=== PATIENT | male | born 1960 | race Caucasian/White ===

== ENCOUNTER 2018-11-28 08:56 | Emergency (ER) | payer OTHER ==
[2018-11-28 09:02] VITALS: BMI 28.8
[2018-11-28] MEDS ORDERED: Sodium Chloride 0.9% 1,000 ML IV STA (09:34)
[2018-11-28] MEDS ORDERED: Iohexol 240 (50 ml) PO ONE (09:34)
--- NOTE | 2018-11-28 09:36 | ED PDOC ---
HPI: Abdomen Time Seen by Provider: 11/28/18 09:09 Chief Complaint (Nursing): Abdominal Pain Chief Complaint (Provider): Abd pain History Per: Patient History/Exam Limitations: no limitations Onset/Duration Of Symptoms: Days (5 days) Additional Complaint(s): Pt. with abd pain right lower and right testicular pain. Also with low back pain on the left going down left leg. No numbness, tingles, weakness, headaches, dizziness, dysuria, nausea, vomit, diarrhea, fever, new food. No injury. No incontinence or constipation. Past Medical History Reviewed: Nursing Documentation, Vital Signs Vital Signs: Last Vital Signs Temp 98.4 F 11/28/18 08:59 Pulse 79 11/28/18 08:59 Resp 14 11/28/18 08:59 BP 102/70 11/28/18 08:59 Pulse Ox 98 11/28/18 09:04 Primary Care Provider: FAMILY PROVIDER,NO - Medical History PMH: Hiatal Hernia, HTN Other PMH: testicle removed right - Surgical History Surgical History: Cholecystectomy - Family History Family History: States: Unknown Family Hx - Home Medications Home Medications: Ambulatory Orders Medication Instructions Recorded Albuterol HFA [Ventolin HFA 90 2 puff IH [id number] PRN #1 bottle 10/15/14 mcg/actuation (8 g)] Azithromycin [Zithromax Z-Clay] 250 mg PO DAILY #6 tab 10/15/14 Bismuth Subsalicylate [kaopECTATE] 262 mg PO Q4H PRN #240 ml 12/05/14 K Phos/Na Phos, Dibasic/Na P 250 mg PO DAILY #7 tab 07/27/15 [K-Phos Neutral] Ibuprofen [Motrin] 600 mg PO TID 7 Days tab 11/28/18 - Allergies Allergies/Adverse Reactions: Allergies Allergy/AdvReac Type Severity Reaction Status Date / Time No Known Allergies Allergy Verified 11/28/18 09:04 Review of Systems ROS Statement: Except As Marked, All Systems Reviewed And Found Negative Gastrointestinal: Positive for: Abdominal Pain Genitourinary Male: Positive for: Scrotal Pain Musculoskeletal: Positive for: Back Pain, Leg Pain Physical Exam - Reviewed Nursing Documentation Reviewed: Yes Vital Signs Reviewed: Yes - Physical Exam Appears: Positive for: Non-toxic, No Acute Distress Head Exam: Positive for: ATRAUMATIC, NORMAL INSPECTION, NORMOCEPHALIC Skin: Positive for: Normal Color, Warm, DRY Eye Exam: Positive for: EOMI, Normal appearance, PERRL ENT: Positive for: Normal ENT Inspection Neck: Positive for: Normal, Painless ROM Cardiovascular/Chest: Positive for: Regular Rate, Rhythm Respiratory: Positive for: CNT, Normal Breath Sounds Gastrointestinal/Abdominal: Positive for: Soft, Tenderness (RLQ). Negative for: Distended, Guarding Male Genital Exam: Positive for: other (no testicle present right; scrotal sac n ontender; left testicle descended and nontender) Back: Positive for: Normal Inspection. Negative for: L CVA Tenderness, R CVA Tenderness Extremity: Positive for: Normal ROM. Negative for: Tenderness, Pedal Edema Neurological/Psych: Positive for: Awake, Alert, Normal Tone - Laboratory Results Result Diagrams: 11/28/18 09:50 11/28/18 09:50 Interpretation Of Abn Labs: elevated liver enzymes Urine dip results: Negative for: Leukocyte Esterase, Nitrate - ECG O2 Sat by Pulse Oximetry: 98 Pulse Ox Interpretation: Normal - CT Scan/US US Other Rad Studies (CT/US): Read By Radiologist Other Rad Interpretation: no acute ct Other Rad Studies (CT/US): Read By Radiologist Other Rad Interpretation: no acute - Progress ED Course And Treament: 1406: Stable. AAOx3. Pain free. Tolerated PO. Fu with pcp. Disposition - Clinical Impression Clinical Impression: Abdominal pain, Testicular pain, Elevated liver enzymes - Patient ED Disposition Is Patient to be Admitted: No Counseled Patient/Family Regarding: Studies Performed, Diagnosis, Need For Followup, Rx Given - Disposition Referrals: [facility] [Outside] - 11/29/18 Disposition: Routine/Home Disposition Time: 09:40 Condition: STABLE Additional Instructions: Return if not better in 3 days. See your primary care doctor for further evaluation of your abdominal pain and elevated liver enzymes. Regreso si no mejor en 3 gross. Consulte a valdez mdico de chandanara para lino evaluacin adicional de valdez dolor abdominal y de las enzimas hepticas elevadas. Prescriptions: Ibuprofen [Motrin] 600 mg PO TID 7 Days tab Instructions: Stomach Ache and Stomach Upset Print Language: DIVEHI
[2018-11-28] MEDS ORDERED: Iohexol 240 (50 ml) ONE (09:41)
[2018-11-28 10:00] LABS: EOS % 1.1 % (0.0-4.0); HEMOGLOBIN 15.4 g/dL (12.0-18.0); LYMPH # 0.8 K/uL (1.0-4.3); LYMPH % 21.4 % (20.0-40.0); MEAN CELL VOLUME 92.2 fl (80.0-94.0); MEAN CORPUSCULAR HEMOGLOBIN 31.6 pg (27.0-31.0); MEAN CORPUSCULAR HGB CONC 34.3 g/dL (33.0-37.0); MEAN PLATELET VOLUME 8.4 fl (7.2-11.7); MONO # 0.5 K/uL (0.0-0.8); NEUT # 2.2 K/uL (1.8-7.0); NEUT % 61.5 % (50.0-75.0); NRBC % 0.2 % (0.0-0.0); RBC 4.87 Mil/uL (4.40-5.90); RED CELL DISTRIBUTION WIDTH 12.9 % (11.5-14.5)
[2018-11-28 10:01] LABS: WHITE BLOOD COUNT 3.5 K/uL (4.8-10.8)
[2018-11-28 10:14] LABS: ALB/GLOB RATIO 1.3 (1.0-2.1); ALBUMIN 4.1 g/dL (3.5-5.0); ALT/SGPT 109 U/L (21-72); AST/SGOT 71 U/L (17-59); BLOOD UREA NITROGEN 13 mg/dl (9-20); CALCIUM 8.9 mg/dL (8.4-10.2); GFR NON-AFRICAN AMERICAN > 60
--- NOTE | 2018-11-28 11:39 | US ---
Date of service: 11/28/2018 HISTORY: Right-sided scrotal pain. History of right orchiectomy approximately 50 years ago the reason for this is unknown. TECHNIQUE: Realtime sonography through the scrotum with color and doppler flow. COMPARISON: None Available. FINDINGS: RIGHT TESTICLE: Not visualized-history of right orchiectomy approximately 50 years ago. RIGHT EPIDIDYMIS: Not visualized-as above LEFT TESTICLE: Measures 3.7 x 2.4 x 1.7 cm. Normal echotexture and flow. LEFT EPIDIDYMIS: Epididymal head measures 6 x 7 x 6 cm. Left epididymal tail cyst 2.5 x 3.0 x 2.0 mm. HYDROCELE: Left hydrocele moderate sized VARICOCELE: None. OTHER FINDINGS: None. IMPRESSION: History of prior right orchiectomy 50+ years ago. Nonvisualized right testicle. Nonvisualized right epididymis. Unremarkable right scrotal sac residual No left intratesticular pathology noted. Epididymal tail tiny cyst. Moderate left-sided hydrocele. Normal flow to the left testicle.
[2018-11-28] MEDS ORDERED: Sodium Chloride 0.9% 50 ML IV ONE (12:05)
[2018-11-28] MEDS ORDERED: Iohexol 300 100 ML IJ ONE (12:05)
--- NOTE | 2018-11-28 13:56 | CT ---
Date of service: 11/28/2018 PROCEDURE: CT Abdomen and Pelvis with contrast HISTORY: abd pain COMPARISON: CT of the abdomen with contrast 09/30/2013. Images available no prior reports are available to me at this time. TECHNIQUE: Contrast dose: 95 mL Omnipaque 300 Radiation dose: Total exam DLP = 710.73 mGy-cm. This CT exam was performed using one or more of the following dose reduction techniques: Automated exposure control, adjustment of the mA and/or kV according to patient size, and/or use of iterative reconstruction technique. FINDINGS: LOWER THORAX: Unremarkable LIVER: Hepatic steatosis-similar no gross lesion or ductal dilatation. GALLBLADDER AND BILE DUCTS: Unremarkable. PANCREAS: Unremarkable. No gross lesion or ductal dilatation. SPLEEN: Unremarkable. Splenule similar ADRENALS: Unremarkable. No mass. KIDNEYS AND URETERS: Unremarkable. No hydronephrosis. No solid mass. VASCULATURE: Unremarkable. No aortic aneurysm. No aortic atherosclerotic calcification or mural plaque present. BOWEL: Rectosigmoid redundancy with multiple diverticuli present no definite complicating diverticulitis seen. The right relative narrowing of the rectosigmoid on series 2, image 128 from 2013 similar to the current study. Relative smooth colonic narrowing at this recto sigmoid all segment-similar appearing-. No high-grade obstruction suggested. APPENDIX: Normal appendix. PERITONEUM: Unremarkable. No free fluid. No free air. LYMPH NODES: Unremarkable. No enlarged lymph nodes. BLADDER: Unremarkable. REPRODUCTIVE: Enlarged prostate correlate with PSA levels. Similar-appearing BONES: No acute fracture L5-S1 disc space narrowing and mild spondylosis. No change OTHER FINDINGS: None. IMPRESSION: Rectosigmoid redundancy with extensive diverticulosis. No change appreciated no definitive diverticulitis seen. Right relative rectosigmoid colonic smooth relative narrowing without high-grade or significant appearing bowel obstruction suggested. Appearance is similar. Enlarged prostate-similar correlate with PSA levels and physical exam. Hepatic steatosis unchanged. Other findings as above.
[2018-11-28 16:07] VITALS: BP 137/86; PULSE 61; RESP 16; TEMP 98.9; O2SAT 100
== END 2018-11-28 15:40 | disposition home or self-care (01) ==
LOC: H.ER 08:56
DX: R10.9 Unspecified abdominal pain (principal); N50.819 Testicular pain, unspecified; R94.5 Abnormal results of liver function studies; I10 Essential (primary) hypertension
CPT/HCPCS: 74177; 80053; 85025; 93975; 96374; 99283; J1885; J7030; Q9966; Q9967